=== PATIENT | female | born 1995 | race Caucasian/White ===

== ENCOUNTER 2023-06-20 11:55 | Emergency (ER) | payer OTHER, SELFPAY ==
[2023-06-20 12:05] VITALS: BP 106/72; PULSE 119; RESP 18; TEMP 37.9; O2SAT 97; BMI 21.2
[2023-06-20] MEDS: 0.9 % SODIUM CHLORIDE 1,000 ML 999 ML IV (12:25)
[2023-06-20] MEDS: ONDANSETRON PF 4 MG/2 ML VIAL IV (12:26)
[2023-06-20] MEDS: KETOROLAC TROMETHAMINE 30 MG/ML VIAL 15 MG IVP (12:26)
--- NOTE | 2023-06-20 13:02 | CT_ITS ---
[place] [id number] Patient Name: AZAM CHAPA MRN: [id number] date: 1995 Sex: F Assigned Patient Location: ER Current Patient Location: ER Accession/Order Number: [id number] Exam Date: 06/20/2023 12:55 Report Date: 06/20/2023 13:41 At the request of: SUSAN BRICE Procedure: CT abdomen pelvis wo con EXAMINATION: CT abdomen pelvis wo con, 06/20/2023 12:55 PM EDT HISTORY: Right flank pain COMPARISON: None. TECHNIQUE: CT scan of the abdomen and pelvis was performed without IV contrast. CT dose reduction technique was used, including Automated Exposure Control. FINDINGS: LOWER CHEST: Focal area of subsegmental atelectasis versus infiltrate in the left lower lobe. LIVER: Unremarkable. GALLBLADDER AND BILIARY SYSTEM: Unremarkable. SPLEEN: Unremarkable. PANCREAS: Unremarkable. ADRENAL GLANDS: Unremarkable. 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 3 mm nonobstructing calculus in the lower pole the left kidney. Punctate nonobstructing calculi in the upper pole the left kidney. No hydronephrosis. There is stranding superior to the right kidney. BLADDER: Unremarkable. GASTROINTESTINAL TRACT: No evidence of bowel obstruction or colitis. Normal appendix. VASCULATURE: The abdominal aorta is normal in caliber. RETROPERITONEUM: No lymphadenopathy. PERITONEUM/MESENTERY: No abdominal ascites. No free air. PELVIS: Small amount of free fluid in the cul-de-sac. There is a 2.4 x 1.5 cm right ovarian cyst. No lymphadenopathy. BODY WALL: Small fat-containing umbilical hernia. BONES: No acute abnormality. CT/CT abdomen pelvis wo con IMPRESSION: 1. Left-sided nephrolithiasis. Bilateral medullary nephrocalcinosis. Stranding noted superior to the right kidney. No hydronephrosis. 2. Subsegmental atelectasis versus infiltrate in the left lower lobe. 3. Right ovarian cyst measuring 2.4 cm. Small amount of free fluid in the cul-de-sac. Electronically authenticated by: IMELDA DEVRIES Date: 06/20/2023 13:41
[2023-06-20 13:52] LABS: Basophils Percent Auto 0.2 % (0.2-2.0); Hemoglobin 12.3 g/dL (12.0-16.0); Immature Granulocytes Abs Auto 0.08 10^3/uL (0.00-0.03); Immature Granulocytes Pct Auto 0.6 % (0.0-0.5); Lymphocytes Absolute Auto 0.5 10^3/uL (1.2-3.8); Lymphocytes Percent Auto 3.9 % (20.5-60.0); Mean Corpuscular HGB Conc 34.2 g/dL (29.9-35.2); Mean Corpuscular Hemoglobin 29.9 pg (26.7-34.0); Mean Corpuscular Volume 87.6 fL (81.0-99.0); Mean Platelet Volume 10.4 fL (9.5-13.5); Monocytes Percent Auto 7.7 % (1.7-12.0); Neutrophils Percent Auto 87.6 % (43.0-75.0); Platelet Count 181 10^3/uL (150-450); Red Blood Count 4.11 10^6/uL (4.20-5.40); Red Cell Distribution Width 12.3 % (11.0-15.0); White Blood Count 12.5 10^3/uL (4.0-11.0)
[2023-06-20 13:56] LABS: Alanine Aminotransferase 13 U/L (14-59); Albumin Globulin Ratio 0.8; Albumin Level 3.1 g/dL (3.4-5.0); Alkaline Phosphatase 60 U/L (46-116); Anion Gap 17.5; Aspartate Amino Transferase 16 U/L (15-37); BUN Creatinine Ratio 11.6; Bilirubin Total 0.3 mg/dL (0.2-1.0); Calcium 8.2 mg/dL (8.5-10.1); Carbon Dioxide 21.3 mmol/L (21.0-32.0); Chloride 99 mmol/L (98-107); Estimated GFR (African America >60 (>=60); Estimated GFR (Non-African Ame >60 (>=60); Glucose 96 mg/dL (74-106); Potassium 3.8 mmol/L (3.5-5.1); Sodium 134 mmol/L (136-145); Total Protein 7.1 g/dL (6.4-8.2)
[2023-06-20 14:41] LABS: Bilirubin Urine NEGATIVE (NEGATIVE); Blood Urine MODERATE (NEGATIVE); Clarity Urine CLEAR (CLEAR); Color Urine LT. YELLOW (YELLOW); Glucose Urine UA NEGATIVE (NEGATIVE); Ketones Urine >=80 mg/dL (NEGATIVE); Leukocyte Esterase Urine NEGATIVE (NEGATIVE); Nitrite Urine NEGATIVE (NEGATIVE); Protein Urine 100 mg/dL (NEG/TRACE); Specific Gravity Urine >=1.030 (1.005-1.025); Urine Microscopic Indicated YES; Urobilinogen Urine 0.2 EU/dL (0.2-1.0)
[2023-06-20 14:47] LABS: Amorphous Sediment Urine RARE; Bacteria Urine TRACE #/HPF (NONE SEEN); Cast Seen? NONE SEEN #/LPF (NONE SEEN); Crystals Seen? None Seen #/HPF (None Seen); Mucus Urine SMALL (NONE SEEN); Squamous Epithelial Cell Urine FEW #/LPF (NONE/RARE); Urine Culture Indicated NO; WBC Urine 0-2 #/HPF (NONE SEEN)
--- NOTE | 2023-06-20 15:05 | ED_ITS ---
HPI - Abdominal Pain General Chief Complaint: Abdominal Pain Stated Complaint: FEVER/NOT FEELING WELL/COLD/FATIGUE/KIDNEY PAIN Time Seen by Provider: 06/20/23 12:11 Source: patient Mode of arrival: walk-in Limitations: no limitations History of Present Illness HPI narrative: 28-year-old female to the emergency department with chief complaint of right flank pain. Patient reports onset of pain in the last Three days. It is causing a migraine today. She reports low-grade fevers at home, chills. She denies any nausea or vomiting. She was seen at urgent care and they told her she did not have a urinary tract infection at that time. She reports she has previously had some flank pain and told she was a kidney stone R has not had any recently. She denies . Related Data Previous Rx's Medication Instructions Recorded cephalexin 500 mg capsule 500 mg PO BID 5 days #10 caps 06/20/23 hydrocodone 5 mg-acetaminophen 325 1 tab PO Q6H PRN pain #8 tabs 06/20/23 mg tablet naproxen 500 mg tablet 500 mg PO BID PRN pain #14 tabs 06/20/23 ondansetron 4 mg disintegrating 4 mg PO Q8H PRN nausea and 06/20/23 tablet vomiting 4 days #16 tabs Allergies Allergy/AdvReac Type Severity Reaction Status Date / Time macrobid AdvReac Intermediate Uncoded 06/20/23 12:07 Review of Systems ROS Status of ROS 10 or more systems reviewed and unremarkable except as noted in history and below Exam Narrative Exam Narrative: VITALS: I have reviewed the triage vital signs. GENERAL: Well developed, well appearing adult in no acute distress. NEURO: Alert and oriented. Moves all extremities. Face is symmetric and expressive. EYES: PERRL. No scleral icterus or conjunctival injection. No discharge. Wearing sunglasses. HENT: Normocephalic, atraumatic. Hearing is grossly intact. Nares grossly patent and without discharge. Mucous membranes moist. NECK: No JVD. Patient moves neck without restriction. CARDIO: Rhythm regular. Normal rate. No murmur, rub, or gallop. Pulses equal bilaterally in the upper and lower extremity. No lower extremity edema. PULM: Lungs clear to auscultation in all [place]ckeon. No wheezes, rales, or rhonchi. No conversational dyspnea. No splinting, stridor, or accessory muscle use. GI/: Abdomen is soft and non-tender. Normoactive bowel sounds. EXTREMITIES: Symmetric muscle bulk. No joint swelling. No clubbing, cyanosis, or deformity. SKIN: Warm and dry. Normal turgor. No rash or lesions appreciated. PSYCH: Mood, affect, and interaction is appropriate to the setting. Constitutional Vital Signs, click to edit/add: Last Vital Signs Temp 100.2 F 06/20/23 12:05 Pulse 119 H 06/20/23 12:05 Resp 18 06/20/23 12:05 BP 106/72 06/20/23 12:05 Pulse Ox 97 06/20/23 12:05 O2 Del Method Room Air 06/20/23 12:05 Course Vital Signs Vital signs: Vital Signs Temperature 100.2 F 06/20/23 12:05 Pulse Rate 119 H 06/20/23 12:05 Respiratory Rate 18 06/20/23 12:05 Blood Pressure 106/72 06/20/23 12:05 Pulse Oximetry 97 06/20/23 12:05 Oxygen Delivery Method Room Air 06/20/23 12:05 Temperature 100.2 F 06/20/23 12:05 Pulse Rate 119 H 06/20/23 12:05 Respiratory Rate 18 06/20/23 12:05 Blood Pressure 106/72 06/20/23 12:05 Pulse Oximetry 97 06/20/23 12:05 Oxygen Delivery Method Room Air 06/20/23 12:05 MDM - Abdominal Pain MDM Narrative Medical decision making narrative: 28-year-old female to emergency Department with chief complaint of right-sided flank pain. Tachycardic, otherwise stable vitals. Patient is afebrile. Basic labs, urinalysis, urine test, CT scan ordered. Patient agreed with this plan. Ketorolac, Zofran, fluids for symptoms. Laboratory data noted. Mild stenosis. No major loculated abnormality. Normal renal function. test is negative. Urinalysis was Remarkable for blood and protein. CT scan shows left-sided nephrolithiasis. There is no hydroureter or evidence of obstructive uropathy. There is some stranding around the right kidney. Findings were discussed. She reports she recently scan that showed nephrolithiasis. Discussed diagnostic and certainly with the patient. She is either passed a small kidney stone, was in the process of passing small kidney stone that was between the CT slices, or has a urinary tract infection a mask on the urine dip by hematuria. After risk-benefit discussion plan was made to treat as above. Medications prescribed. Return precautions discussed. Follow up with PCP. All questions were answered. Patient was discharged home. Medical Records Attestation: I reviewed the patient's medical records. Lab Data Attestation: I reviewed the patient's lab results. Labs: Lab Results 06/20/23 06/20/23 Range/Units 13:30 14:05 WBC 12.5 H (4.0-11.0) 10^3/uL RBC 4.11 L (4.20-5.40) 10^6/uL Hgb 12.3 (12.0-16.0) g/dL Hct 36.0 (36.0-48.0) % MCV 87.6 (81.0-99.0) fL MCH 29.9 (26.7-34.0) pg MCHC 34.2 (29.9-35.2) g/dL RDW 12.3 (11.0-15.0) % Plt Count 181 (150-450) 10^3/uL MPV 10.4 (9.5-13.5) fL Neut % (Auto) 87.6 H (43.0-75.0) % Lymph % (Auto) 3.9 L (20.5-60.0) % [place] % (Auto) 7.7 (1.7-12.0) % Eos % (Auto) 0.0 L (0.9-7.0) % Baso % (Auto) 0.2 (0.2-2.0) % Neut # (Auto) 11.0 H (1.4-6.5) 10^3/uL Lymph # (Auto) 0.5 L (1.2-3.8) 10^3/uL [place] # (Auto) 1.0 H (0.3-0.8) 10^3/uL Eos # (Auto) 0.0 (0.0-0.7) 10^3/uL Baso # (Auto) 0.0 (0.0-0.1) 10^3/uL Abs Immat Gran (auto) 0.08 H (0.00-0.03) 10^3/uL Imm/Tot Granulo (auto) 0.6 H (0.0-0.5) % Sodium 134 L (136-145) mmol/L Potassium 3.8 (3.5-5.1) mmol/L Chloride 99 (98-107) mmol/L Carbon Dioxide 21.3 (21.0-32.0) mmol/L Anion Gap 17.5 BUN 8.0 (7.0-18.0) mg/dL Creatinine 0.69 (0.55-1.02) mg/dL Est GFR ( Amer) >60 (>=60) Est GFR (Non-Af Amer) >60 (>=60) BUN/Creatinine Ratio 11.6 Glucose 96 (74-106) mg/dL Calcium 8.2 L (8.5-10.1) mg/dL Total Bilirubin 0.3 (0.2-1.0) mg/dL AST 16 (15-37) U/L ALT 13 L (14-59) U/L Alkaline Phosphatase 60 (46-116) U/L Total Protein 7.1 (6.4-8.2) g/dL Albumin 3.1 L (3.4-5.0) g/dL Globulin 4.0 g/dL Albumin/Globulin Ratio 0.8 Serum HCG, Qual Negative (NEGATIVE) Urine Color Lt. yellow (YELLOW) Urine Clarity Clear (CLEAR) Urine pH 6.0 (5.0-9.0) Ur Specific [place] >=1.030 A (1.005-1.025) Urine Protein 100 A (NEG/TRACE) mg/dL Urine Glucose (UA) Negative (NEGATIVE) mg/dL Urine Ketones >=80 A (NEGATIVE) mg/dL Urine Occult Blood Moderate A (NEGATIVE) Urine Nitrite Negative (NEGATIVE) Urine Bilirubin Negative (NEGATIVE) Urine Urobilinogen 0.2 (0.2-1.0) EU/dL Ur Leukocyte Esterase Negative (NEGATIVE) Urine RBC 2-5 A (0-2) #/HPF Urine WBC 0-2 A (NONE SEEN) #/HPF Ur Squamous Epith Cells Few A (NONE/RARE) #/LPF Urine Crystals None seen (None Seen) #/HPF Amorphous Sediment Rare Urine Bacteria Trace A (NONE SEEN) #/HPF Urine Casts None seen (NONE SEEN) #/LPF Urine Mucus Small A (NONE SEEN) Ur Culture Indicated? No Discharge Plan Discharge Chief Complaint: Abdominal Pain Clinical Impression: Hematuria, Flank pain Patient Disposition: Home, Self-Care Time of Disposition Decision: 15:41 Condition: Good Mode of Transportation: Private Vehicle Prescriptions / Home Meds: New cephalexin 500 mg capsule 500 mg PO BID 5 Days Qty: 10 0RF ondansetron 4 mg tablet,disintegrating 4 mg PO Q8H PRN (Reason: nausea and vomiting) 4 Days Qty: 16 0RF naproxen 500 mg tablet 500 mg PO BID PRN (Reason: pain) Qty: 14 0RF hydrocodone-acetaminophen 5-325 mg tablet 1 tab PO Q6H MDD 4 tabs PRN (Reason: pain) Qty: 8 0RF Print Language: Wolof Instructions: Hematuria (ED), Flank Pain (ED) Stand Alone Forms: Portal Instructions Referrals: LUIS ALFREDO PATRICK [Primary Care Provider] - 1 week
[2023-06-20 15:22] LABS: HCG Qualitative NEGATIVE (NEGATIVE)
== END 2023-06-20 15:54 | disposition home or self-care (01) ==
PROVIDERS: Emergency Provider Student in an Organized Health Care Education/Training Program; PCP Family Medicine
DX: R10.9 Unspecified abdominal pain (principal); R31.9 Hematuria, unspecified; N20.0 Calculus of kidney
CPT/HCPCS: 36415; 74176; 80053; 81001; 84703; 85025; 96374; 96375; 99285